=== PATIENT | male | born 1945 | race Caucasian/White ===

== ENCOUNTER 2021-08-15 13:59 | Outpatient (CLI) | payer MEDICARE, BC | END 2021-08-15 14:00 | disposition home or self-care (01) | LOC: NAV RAD 13:59 | PROVIDERS: ATTEND Neurological Surgery | DX: M25.511 Pain in right shoulder (principal); M25.512 Pain in left shoulder; M19.011 Primary osteoarthritis, right shoulder; M19.012 Primary osteoarthritis, left shoulder ==

== ENCOUNTER 2023-10-05 10:30 | Emergency (ER) | payer BC, MEDICARE | END 2023-10-05 11:55 | disposition home or self-care (01) | LOC: NAV ERS 10:30 | DX: M54.2 Cervicalgia (principal); E03.9 Hypothyroidism, unspecified; I10 Essential (primary) hypertension; Z79.899 Other long term (current) drug therapy; Z79.84 Long term (current) use of oral hypoglycemic drugs; Z79.82 Long term (current) use of aspirin | CPT/HCPCS: 72125 ==

== ENCOUNTER 2024-07-02 00:19 | Emergency (ER) | payer MEDICARE ==
[2024-07-02] MEDS ORDERED: predniSONE 20 MG TAB ONE (00:43)
== END 2024-07-02 00:55 | disposition home or self-care (01) ==
LOC: NAV ERS 00:19
DX: R21 Rash and other nonspecific skin eruption (principal); I10 Essential (primary) hypertension; E11.9 Type 2 diabetes mellitus without complications
CPT/HCPCS: 99282; J7512

== ENCOUNTER 2024-08-11 06:33 | Emergency (ER) | payer MEDICARE ==
[2024-08-11] MEDS ORDERED: Ipratropium/Albuterol 3 ML NEB ONE (07:09)
== END 2024-08-11 07:40 | disposition home or self-care (01) ==
LOC: NAV ERS 06:33
DX: J18.9 Pneumonia, unspecified organism (principal); R06.2 Wheezing; E11.9 Type 2 diabetes mellitus without complications; E03.9 Hypothyroidism, unspecified; I10 Essential (primary) hypertension; Z79.899 Other long term (current) drug therapy; Z87.891 Personal history of nicotine dependence; Z79.82 Long term (current) use of aspirin
CPT/HCPCS: 71045; 87070; 87205; 87428; 94640; J7620

== ENCOUNTER 2024-10-05 20:25 | Emergency (ER) | payer MEDICARE ==
[2024-10-05] MEDS ORDERED: Lidocaine/Transparent Dressing 1 EACH KIT ONE (20:36)
[2024-10-05] MEDS ORDERED: valACYclovir 500 MG TAB ONE (20:39)
== END 2024-10-05 20:48 | disposition home or self-care (01) ==
LOC: NAV ERS 20:25
DX: B02.9 Zoster without complications (principal); E11.9 Type 2 diabetes mellitus without complications; I10 Essential (primary) hypertension; E03.9 Hypothyroidism, unspecified; M10.9 Gout, unspecified; Z87.890 Personal history of sex reassignment
CPT/HCPCS: 99282

== ENCOUNTER 2024-10-15 19:30 | Emergency (ER) | payer MEDICARE ==
[2024-10-15] MEDS ORDERED: hydrOXYzine 25 MG TAB ONE (20:21)
== END 2024-10-15 20:35 | disposition home or self-care (01) ==
LOC: NAV ERS 19:30
DX: L23.9 Allergic contact dermatitis, unspecified cause (principal); I10 Essential (primary) hypertension; E11.9 Type 2 diabetes mellitus without complications; Z87.891 Personal history of nicotine dependence
CPT/HCPCS: 99282

== ENCOUNTER 2024-11-13 23:52 | Emergency (ER) | payer MEDICARE, SELFPAY ==
[2024-11-14] MEDS ORDERED: Lidocaine Viscous Sol 2% 15 ml UD Cup ONE (00:16)
[2024-11-14] MEDS ORDERED: Mag-Al Plus 1200/1200/120 MG (30 mL) UDCUP ONE (00:16)
== END 2024-11-14 01:05 | disposition home or self-care (01) ==
LOC: NAV ERS 23:52
DX: U07.1 COVID-19 (principal); I10 Essential (primary) hypertension; E11.9 Type 2 diabetes mellitus without complications
CPT/HCPCS: 99283

== ENCOUNTER 2025-06-19 16:17 | Emergency (ER) | payer MEDICARE | END 2025-06-19 17:53 | disposition home or self-care (01) | LOC: NAV ERS 16:17 | DX: R05.9 Cough, unspecified (principal); R09.81 Nasal congestion; R19.7 Diarrhea, unspecified; I10 Essential (primary) hypertension; E11.9 Type 2 diabetes mellitus without complications; Z87.891 Personal history of nicotine dependence; Z79.82 Long term (current) use of aspirin; Z79.899 Other long term (current) drug therapy; Z79.890 Hormone replacement therapy; Z79.84 Long term (current) use of oral hypoglycemic drugs | CPT/HCPCS: 71046; 87426 ==